=== PATIENT | female | born 2000 | race Caucasian/White ===

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

== ENCOUNTER 2021-05-20 10:28 | Observation (INO) ==
[2021-05-20] MEDS ORDERED: 0.9 % Sodium Chloride 1,000 ML IVC ONE (10:33)
[2021-05-20] MEDS ORDERED: Ondansetron 4 MG/2 ML VIAL IVP ONE (10:33)
[2021-05-20 11:06] LABS: BUN/Creatinine Ratio 17 (6-26); Blood Urea Nitrogen 15 mg/dL (6-20); Calcium 9.7 mg/dL (8.6-10.3); Carbon Dioxide 18 mEq/L (23-29); Chloride 104 mEq/L (98-107); Glucose 99 mg/dL (70-105); Osmolality,Calculated 289 (280-300); Potassium 3.8 mEq/L (3.5-5.1); Sodium 139 mEq/L (136-145); eGFR For African Americans > 60 (> 60); eGFR For Non-African Americans > 60 (> 60)
[2021-05-20] MEDS ORDERED: Haloperidol Lactate 5 MG/ML VIAL IVP ONE (11:40)
[2021-05-20 11:51] LABS: Bilirubin,Urine Moderate (Negative); Blood,Urine Large (Negative); Clarity,Urine Clear (Clear); Color,Urine Yellow (Yellow); Glucose,Urine (UA) Normal (Normal); Ketones,Urine >=160 mg/dL (Negative); Leukocyte Esterase,Urine Negative (Negative); Nitrite,Urine Negative (Negative); Protein,Urine 100 mg/dL (Neg-Trace); Specific Gravity,Urine >= 1.030 (1.010-1.025); Urobilinogen,Urine Normal (Normal)
[2021-05-20 11:57] LABS: Bacteria,Urine Moderate per hpf (None-Few); Mucus,Urine Many per lpf (None-Few); Squamous Epithelial Cell,Urine Few per hpf (None-Few)
[2021-05-20 11:58] LABS: RBC,Urine 50-100 per hpf (0-3)
[2021-05-20] MEDS ORDERED: Naloxone 0.4 MG/ML INJ IVP PRN (12:13)
[2021-05-20] MEDS: Ringers Solution, Lactated 1,000 ML IVC SCH ×2 (13:47→20:16)
[2021-05-20] MEDS: Ondansetron 4 MG/2 ML VIAL IVP PRN (20:42)
[2021-05-20] MEDS: *HR* LORazepam 0.5 MG TABLET PO PRN (20:43)
[2021-05-21] MEDS: Ondansetron 4 MG/2 ML VIAL IVP PRN ×4 (02:42→21:49)
[2021-05-21] MEDS: *HR* LORazepam 0.5 MG TABLET PO PRN ×4 (02:48→21:49)
[2021-05-21 08:00] LABS: Hematocrit 43.9 % (35.3-44.9); Hemoglobin 14.8 g/dL (11.5-15.4); Mean Corpuscular HGB Conc 33.7 g/dL (31.6-35.5); Mean Corpuscular Hemoglobin 29.3 pg (28.0-33.3); Mean Corpuscular Volume 86.9 fL (83.0-100.0); Mean Platelet Volume 8.8 fL (9.4-12.4); Platelet Count 410 K/mcL (140-400); Red Blood Count 5.05 M/mcL (3.82-4.97); Red Cell Distribution Width 13.2 % (11.5-14.5); White Blood Count 9.8 K/mcL (4.3-11.1)
[2021-05-21 08:13] LABS: BUN/Creatinine Ratio 13 (6-26); Blood Urea Nitrogen 10 mg/dL (6-20); Calcium 8.7 mg/dL (8.6-10.3); Carbon Dioxide 23 mEq/L (23-29); Chloride 104 mEq/L (98-107); Glucose 89 mg/dL (70-105); Osmolality,Calculated 287 (280-300); Potassium 3.3 mEq/L (3.5-5.1); Sodium 139 mEq/L (136-145); eGFR For African Americans > 60 (> 60); eGFR For Non-African Americans > 60 (> 60)
[2021-05-21] MEDS: Ringers Solution, Lactated 1,000 ML IVC SCH ×3 (09:19→21:54)
[2021-05-22] MEDS: Ringers Solution, Lactated 1,000 ML IVC SCH (04:09)
[2021-05-22] MEDS: *HR* LORazepam 0.5 MG TABLET PO PRN (04:09)
[2021-05-22 07:47] VITALS: BP 127/77
[2021-05-22 08:04] LABS: Hematocrit 42.5 % (35.3-44.9); Hemoglobin 14.6 g/dL (11.5-15.4); Mean Corpuscular HGB Conc 34.4 g/dL (31.6-35.5); Mean Corpuscular Hemoglobin 29.6 pg (28.0-33.3); Mean Corpuscular Volume 86.2 fL (83.0-100.0); Mean Platelet Volume 8.8 fL (9.4-12.4); Platelet Count 369 K/mcL (140-400); Red Blood Count 4.93 M/mcL (3.82-4.97); Red Cell Distribution Width 12.9 % (11.5-14.5); White Blood Count 9.8 K/mcL (4.3-11.1)
[2021-05-22 08:20] LABS: BUN/Creatinine Ratio 11 (6-26); Blood Urea Nitrogen 8 mg/dL (6-20); Calcium 8.6 mg/dL (8.6-10.3); Carbon Dioxide 25 mEq/L (23-29); Chloride 101 mEq/L (98-107); Glucose 81 mg/dL (70-105); Osmolality,Calculated 279 (280-300); Potassium 3.4 mEq/L (3.5-5.1); Sodium 136 mEq/L (136-145); eGFR For African Americans > 60 (> 60); eGFR For Non-African Americans > 60 (> 60)
== END 2021-05-22 11:28 | disposition home or self-care (01) ==
LOC: EMEROOPIK 10:28 → INPPIK 10:28
PROVIDERS: ADMIT Family Medicine; ATTEND Family Medicine